=== PATIENT | female | born 1925 | race Caucasian/White ===

== ENCOUNTER 2016-11-03 04:24 | Inpatient (IN) | payer OTHER ==
[~2016-11-03] VITALS: Ht 165.1 cm; Wt 62.0 kg
[2016-11-03] VITALS (8 sets, daily range): BP systolic 117–137; BP diastolic 48–80
--- NOTE | ~2016-11-03 | 2DMMODE ---
[facility] [employer] [place] [place] [address] 2 D/M-MODE ECHOCARDIOGRAM Name: DAMARIS CARDENAS Room #: 311-P [facility] IN M.R.#: [id number] Admission: 11/03/16 Attend Phys: Eamon Bullard, Discharge: Date of : [birth year] Date of Service: 11/03/16 1723 Report #: [id number] THIS REPORT FOR: //name// APPROVED REPORT Study performed: 11/03/2016 13:39:01 EXAM: Comprehensive 2D, Doppler, and color-flow Echocardiogram Patient Location: Bedside Room 311 Blood Pressure: 131/66 mmHg HR: 60 bpm Other Information Study Quality: Adequate/low parasternal window, patient sitting up in bed. Indications Fall, CHF exacerbation.Hx: Afib, pacemaker, HTN 2D Dimensions RVDd: 34.59 mm LVEF(%): 59.69 (>50%) IVSd: 14.09 (7-11mm) LVOT Diam: 18.34 (18-24mm) LVDd: 46.56 mm PWd: 13.36 (7-11mm) LVDs: 31.81 (25-40mm) Aortic Root: 26.17 mm Baez's LVEF: 59.69 % Volumes Left Atrial Volume (Systole) Single Plane 4CH: 72.46 mL Single Plane 2CH: 53.74 mL LA ESV Index: 42.00 mL/m2 Aortic Valve AoV Peak Ze.: 4.31 m/s AO Peak Gr.: 74.36 mmHg AO Mean Gr.: 50.98 mmHg LV Max P.00 mmHg AO V2 VTI: 1286.20 mm LV Max: 0.87 m/s Mitral Valve MV PHT: 56.24 ms MV A Ze.: 1.44 m/s MV Decel. Time: 193.94 ms [facility] [employer] [place] [place] [address] 2 D/M-MODE ECHOCARDIOGRAM Name: CARDENASDAMARIS [facility] Room #: 311-P [facility].#: [id number] Admission: 11/03/16 Attend Phys: Eamon Bullard, Discharge: Date of : [birth year] Date of Service: 11/03/16 1723 Report #: [id number] Pulmonary Valve PV Peak Ze.: 0.90 m/s PV Peak Gr.: 3.21 mmHg Tricuspid Valve TR Peak Ze.: 3.64 m/s RAP Estimate: 10.00 mmHg TR Peak Gr.: 52.92 mmHg RVSP: 63.00 mmHg Left Ventricle The left ventricle is normal size. There is normal LV segmental wall motion. Moderate concentric left ventricular hypertrophy. Left ventricular systolic function is normal. LVEF is 65%. Grade II - pseudonormal filling dynamics. Right Ventricle The right ventricle is normal size. The right ventricular systolic function is normal. Pacemaker lead is present in the right ventricle. Atria Left atrium is moderately dilated. The right atrium size is normal. Aortic Valve Aortic valve is severely calcified. No aortic regurgitation is present. There is severe valvular aortic stenosis. Calculated aortic valve area is 0.5 cm2 with maximum pressure gradient of 74 mmHg and mean pressure gradient of 51 mmHg. Mitral Valve Mitral valve leaflets are moderately thickened and calcified. Moderate mitral annular calcification. Moderate mitral regurgitation. There is no mitral valve stenosis. Tricuspid Valve The tricuspid valve is normal in structure. There is mild tricuspid regurgitation. The right atrial pressure is estimated at 10 mmHg. There is moderate pulmonary hypertension with an estimated PAP of 63mmHg. Pulmonic Valve The pulmonary valve is normal in structure. Trace pulmonic regurgitation. Great Vessels The aortic root is normal in size. Ascending aorta is not well visualized. IVC is dilated and collapses <50% with inspiration. [address] [address] 2 D/M-MODE ECHOCARDIOGRAM Name: DAMARIS [facility]S [facility] Room #: [facility]-P [facility] IN ..#: [id number] Admission: 11/03/16 Attend Phys: Eamon Bullard, Discharge: Date of : [birth year] Date of Service: 11/03/16 1723 Report #: [id number] Pericardium There is no pericardial effusion. Large left and right pleural effusions noted. <Conclusion> The left ventricle is normal size. LVEF is 65%. Left atrium is moderately dilated. Aortic valve is severely calcified. There is severe valvular aortic stenosis. Calculated aortic valve area is 0.5 cm2 with maximum pressure gradient of 74 mmHg and mean pressure gradient of 51 mmHg. Mitral valve leaflets are moderately thickened and calcified. Moderate mitral annular calcification. Moderate mitral regurgitation. Trace pulmonic regurgitation. <ELECTRONICALLY SIGNED> By: Juan Soto MD 11/03/16 172 22 22 Juan Soto MD /INF
--- NOTE | ~2016-11-03 | EKG ---
[place] [address] [facility] [place] [address] ELECTROCARDIOGRAM REPORT Name: DAMARIS CARDENAS Room #: 311-P ADM IN M.R.#: [id number] Admission: 11/03/16 Attend Phys: Eamon Bullard MD Discharge: Date of : [birth year] Report #: [id number] THIS REPORT FOR: //name// [facility] ED Test Date: 2016-11-03 Test Time: 04:37:55 Pat Name: DAMARIS CARDENAS Department: Room: [facility] Gender: F Contractor [employer]hing: [id number] : 1925 Requested By: Fortunato Arnold Order Number: [id number] MD: Anthony Zheng Measurements Intervals [place] Rate: 93 P: NC: QRS: 10 QRSD: 95 T: QT: 379 QTc: 472 Interpretive Statements Atrial fibrillation Ventricular premature complex LVH with secondary repolarization abnormality Compared to ECG 10/01/2016 00:13:16 Ventricular premature complex(es) now present Sinus rhythm no longer present Electronically Signed On 11-03-2016 8:54:35 CDT by Anthony Zheng [email or web address] <ELECTRONICALLY SIGNED> By: Anthony Zheng MD, [facility] 11/03/16 0854 0437 0437 Anthony Zheng MD, [facility] /EPI
[~2016-11-03 04:24] MED LIST: ALPRAZOLAM 0.50.5 MG PO; AMBIEN 5 MG TABL5 M1; AMBIEN 5 MG TABL5 M1 PO; APAP500 PO; AVAPRO 150 MG150 M1 PO; AZO BLADDER CO300 MG PO; BENADRYL25 MG PO; CARDIZEM CD240 MG PO; COLACE100 MG PO; COUMADIN 3 MG TA3 M1 PO; COZAAR 25 MG TA25 M1 PO; FLONASE 0.05%50 MCG NASAL; GLUCOTROL5 MG PO; LASIX 40 MG TAB40 M2 PO; LIDODERM 5%1 PATC1 TRANSDERM; LINZESS290 MCG PO; LOPRESSOR50 PO; MIRALAX17 GM PO; NORVASC5 MG; OMEPRAZOLE20 M2 PO; PAXIL10 MG; POTASSIUM20; PRILOSEC 20 MG20 MG PO; PRILOSEC20 MG PO; SORINE 80 MG TA80 M1 PO; SORINE 80 MG TA80 MG; SURFAK240 MG; TOPROL XL50 MG PO; TRAMADOL 50 MG50 MG PO; TYLENOL EXTRA500 MG; TYLENOL325 MG PO; ULTRAM50 MG PO; VESICARE 5 MG TA5 MG PO; XANAX 0.5 MG0.5 MG; XANAX 0.5 MG0.5 MG PO
[2016-11-03] MEDS ORDERED: AMBIEN 5 MG TABL5 M1 PO (04:37)
[2016-11-03 05:02] LABS: RDW 18.9 % (10.5-14.5); WBC 11.6 thou/uL (4.0-11.0)
[2016-11-03 05:04] LABS: ABSOLUTE NEUTROPHILS 9.3 thou/uL (1.4-8.2); EOSINOPHILS 0.7 % (0.0-3.0); HEMATOCRIT 20.9 % (37.0-47.0); LYMPHOCYTES 11.4 % (24.0-44.0); MCH 23.1 pg (26.0-34.0); MCHC 30.8 g/dL (28.0-37.0); MONOCYTES 7.3 % (1.0-8.0); PLATELET COUNT 274 thou/uL (150-400); POLYS 79.6 % (36.0-66.0); RBC 2.79 mil/uL (4.20-5.00)
[2016-11-03 05:05] LABS: MANUAL DIFF NO
[2016-11-03 05:06] LABS: HEMOGLOBIN 6.5 gm/dL (12.0-15.0)
[2016-11-03 05:11] LABS: ANION GAP 8 mmol/L (7-16); BUN 39 mg/dL (7-18); CALCIUM 8.5 mg/dL (8.5-10.1); CHLORIDE 99 mmol/L (98-107); CO2 25 mmol/L (21-32); CREATININE 1.8 mg/dL (0.6-1.0); GLUCOSE 154 mg/dL (74-106); POTASSIUM 4.8 mmol/L (3.5-5.1); SODIUM 132 mmol/L (136-145)
[2016-11-03 05:15] LABS: APTT 30.1 Seconds (24.5-32.8); INR 1.2; PROTIME 12.5 Seconds (9.3-11.4)
[2016-11-03 05:31] LABS: ALBUMIN 2.4 g/dL (3.4-5.0); ALKALINE PHOSPHATASE 69 U/L (46-116); CK-MB MASS 0.8 ng/mL (<0.5-3.6); MAGNESIUM 2.2 mg/dL (1.8-2.4); NT-PRO BRAIN NAT PEPTIDE > 70000 pg/mL (<300); SGOT 17 U/L (15-37); SGPT 10 U/L (30-65); TOTAL BILIRUBIN 0.4 mg/dL (<0.1-1.0); TOTAL PROTEIN 6.2 g/dL (6.4-8.2); TROPONIN-I 0.07 ng/mL (<0.04-0.07)
[2016-11-03 06:18] LABS: URINE BLOOD NEGATIVE (Negative); URINE COLOR YELLOW; URINE GLUCOSE-RANDOM* NEGATIVE (Negative); URINE KETONES NEGATIVE (Negative); URINE LEUKOCYTES-REFLEX NEGATIVE (Negative); URINE PROTEIN (DIPSTICK) TRACE (Negative); URINE SPECIFIC GRAVITY >= 1.030 (1.003-1.035); URINE UROBILINOGEN 0.2 E.U./dl (0.2-1.0)
[2016-11-03 06:21] LABS: ICTOTEST (BILI CONFIRMATORY) Negative (Negative); URINE BILIRUBIN NEGATIVE (Negative)
[2016-11-03 17:41] LABS: INR 1.5; PROTIME 15.2 Seconds (9.3-11.4)
[2016-11-03 17:46] LABS: HEMATOCRIT 34.1 % (37.0-47.0); HEMOGLOBIN 10.8 gm/dL (12.0-15.0)
[2016-11-04 04:01] VITALS: BP 139/61
[2016-11-04 07:08] LABS: HEMATOCRIT 33.4 % (37.0-47.0); MCH 26.2 pg (26.0-34.0); MCV 79.3 fL (80.0-100.0); RBC 4.21 mil/uL (4.20-5.00); RDW 19.5 % (10.5-14.5); WBC 8.9 thou/uL (4.0-11.0)
[2016-11-04 07:25] VITALS: BP 125/76
[2016-11-04 07:32] LABS: CALCIUM 8.3 mg/dL (8.5-10.1); CREATININE 1.3 mg/dL (0.6-1.0); MAGNESIUM 1.9 mg/dL (1.8-2.4); POTASSIUM 3.7 mmol/L (3.5-5.1)
[2016-11-04 11:23] VITALS: BP 137/75
[2016-11-04 16:02] VITALS: BP 135/78
[2016-11-04 20:15] VITALS: BP 135/70
[2016-11-05 04:00] VITALS: BP 135/68
[2016-11-05 07:52] VITALS: BP 123/73
[2016-11-05 11:38] VITALS: BP 108/58
[2016-11-05 15:47] VITALS: BP 110/64
[2016-11-05 16:00] LABS: HEMATOCRIT 32.4 % (37.0-47.0); HEMOGLOBIN 10.7 gm/dL (12.0-15.0); MCH 26.3 pg (26.0-34.0); MCHC 33.1 g/dL (28.0-37.0); MCV 79.5 fL (80.0-100.0); RBC 4.08 mil/uL (4.20-5.00); RDW 19.8 % (10.5-14.5); WBC 7.7 thou/uL (4.0-11.0)
[2016-11-05 16:22] LABS: CALCIUM 8.2 mg/dL (8.5-10.1); CREATININE 1.1 mg/dL (0.6-1.0); POTASSIUM 3.8 mmol/L (3.5-5.1)
[2016-11-05 20:00] VITALS: BP 139/79
[2016-11-06 08:20] VITALS: BP 141/66
[2016-11-06 08:47] VITALS: BP 138/94
[2016-11-06] MEDS ORDERED: FLAGYL500 MG PO (14:23)
[2016-11-06] MEDS ORDERED: PROTONIX40 M1 PO (14:26)
[2016-11-06 14:34] VITALS: BP 138/94
== END 2016-11-06 16:59 | disposition home health service (06) | DRG 377 ==
LOC: ER 04:24 → EROBS 05:27 → 3N 05:27
PROVIDERS: Emergency Medicine; Internal Medicine; Nurse Practitioner
PROC: 30233N1 Transfusion of Nonautologous Red Blood Cells into Peripheral Vein, Percutaneous Approach (ICD-10-PCS; principal; 2016-11-03)
DX: K92.2 Gastrointestinal hemorrhage, unspecified (principal); I50.33 Acute on chronic diastolic (congestive) heart failure; D62 Acute posthemorrhagic anemia; N17.9 Acute kidney failure, unspecified; E44.0 Moderate protein-calorie malnutrition; J90 Pleural effusion, not elsewhere classified; S05.41XA Penetrating wound of orbit with or without foreign body, right eye, initial encounter; A04.7 Enterocolitis due to Clostridium difficile; I13.0 Hypertensive heart and chronic kidney disease with heart failure and stage 1 through stage 4 chronic kidney disease, or unspecified chronic kidney disease; I35.0 Nonrheumatic aortic (valve) stenosis; S01.81XA Laceration without foreign body of other part of head, initial encounter; Z96.89 Presence of other specified functional implants; F41.9 Anxiety disorder, unspecified; X58.XXXA Exposure to other specified factors, initial encounter; D72.829 Elevated white blood cell count, unspecified; G47.00 Insomnia, unspecified; K59.00 Constipation, unspecified; E78.5 Hyperlipidemia, unspecified; I48.2 Chronic atrial fibrillation; G47.33 Obstructive sleep apnea (adult) (pediatric); S09.90XA Unspecified injury of head, initial encounter; N18.9 Chronic kidney disease, unspecified; Z88.1 Allergy status to other antibiotic agents; Z88.6 Allergy status to analgesic agent; Z88.0 Allergy status to penicillin; Z88.2 Allergy status to sulfonamides; Y93.89 Activity, other specified; Y92.89 Other specified places as the place of occurrence of the external cause; Y99.8 Other external cause status; Z98.49 Cataract extraction status, unspecified eye; Z79.01 Long term (current) use of anticoagulants; Z79.899 Other long term (current) drug therapy; Z86.12 Personal history of poliomyelitis; Z90.49 Acquired absence of other specified parts of digestive tract; Z23 Encounter for immunization
CPT/HCPCS: 10096; 23012

== ENCOUNTER 2016-11-24 16:26 | Inpatient (IN) | payer OTHER ==
[~2016-11-24] VITALS: Ht 162.6 cm; Wt 66.3 kg
--- NOTE | ~2016-11-24 | EKG ---
[place] [address] [facility] [place] [address] ELECTROCARDIOGRAM REPORT Name: ROBERT CARDENASNORAH STAHL Room #: 438-P ADM IN M.R.#: [id number] Admission: 11/24/16 Attend Phys: Colt Nation MD Discharge: Date of : [birth year] Report #: [id number] THIS REPORT FOR: //name// [facility] ED Test Date: 2016-11-24 Test Time: 16:39:59 Pat Name: DAMARIS CARDENAS Department: Room: 438 Gender: F Radiation Therapy Technician: [id number] : 1925 Requested By: Eliceo Merritt Order Number: [id number] MD: Anthony Zheng Measurements Intervals [place] Rate: 73 P: 57 SC: 147 QRS: -5 QRSD: 95 T: 232 QT: 464 QTc: 512 Interpretive Statements Sinus rhythm Atrial premature complexes Probable LVH with secondary repol abnrm Anterior ST elevation, probably due to LVH Prolonged QT interval Compared to ECG 11/03/2016 04:37:55 Atrial premature complex(es) now present ST and T wave abnormality less prominent Ventricular premature complex(es) no longer present Electronically Signed On 11-26-2016 8:09:07 CDT by Anthony Zheng [email or web address] <ELECTRONICALLY SIGNED> By: Anthony Zheng MD, [facility] 11/26/16 0809 1639 1639 Anthony Zheng MD, [facility] /EPI
[~2016-11-24 16:26] MED LIST changes: +FLAGYL500 MG PO; +PROTONIX40 M1 PO
[2016-11-24 16:35] VITALS: BP 140/75
[2016-11-24 17:01] LABS: ABSOLUTE NEUTROPHILS 7.6 thou/uL (1.4-8.2); EOSINOPHILS 0.8 % (0.0-3.0); HEMATOCRIT 36.7 % (37.0-47.0); HEMOGLOBIN 11.9 gm/dL (12.0-15.0); LYMPHOCYTES 11.3 % (24.0-44.0); MCH 25.6 pg (26.0-34.0); MCHC 32.4 g/dL (28.0-37.0); PLATELET COUNT 222 thou/uL (150-400); POLYS 79.9 % (36.0-66.0); RBC 4.65 mil/uL (4.20-5.00); RDW 20.7 % (10.5-14.5); WBC 9.5 thou/uL (4.0-11.0)
[2016-11-24 17:03] LABS: MANUAL DIFF NO
[2016-11-24 17:09] LABS: CALCIUM 8.5 mg/dL (8.5-10.1); CREATININE 1.1 mg/dL (0.6-1.0)
[2016-11-24 17:21] LABS: ALBUMIN 2.7 g/dL (3.4-5.0); TOTAL BILIRUBIN 0.6 mg/dL (<0.1-1.0); TOTAL PROTEIN 6.6 g/dL (6.4-8.2); TROPONIN-I 0.15 ng/mL (<0.04-0.07)
[2016-11-24 17:53] VITALS: BP 137/71
[2016-11-24 18:36] VITALS: BP 147/55
[2016-11-24 19:44] VITALS: BP 127/52
[2016-11-24] MEDS ORDERED: MELATONIN3 MG PO (19:53)
[2016-11-24 23:17] VITALS: BP 137/51
[2016-11-25 03:33] VITALS: BP 149/67
[2016-11-25 05:43] LABS: HEMATOCRIT 33.4 % (37.0-47.0); HEMOGLOBIN 10.7 gm/dL (12.0-15.0); MCH 25.4 pg (26.0-34.0); MCV 79.4 fL (80.0-100.0); RBC 4.2 mil/uL (4.20-5.00); RDW 20.6 % (10.5-14.5); WBC 7.6 thou/uL (4.0-11.0)
[2016-11-25 06:01] LABS: ALBUMIN 2.3 g/dL (3.4-5.0); CALCIUM 8.2 mg/dL (8.5-10.1); CREATININE 1.1 mg/dL (0.6-1.0); POTASSIUM 3.6 mmol/L (3.5-5.1); TOTAL BILIRUBIN 0.5 mg/dL (<0.1-1.0); TOTAL PROTEIN 5.7 g/dL (6.4-8.2)
[2016-11-25 07:48] VITALS: BP 137/83
[2016-11-25 11:23] LABS: URINE BILIRUBIN NEGATIVE (Negative); URINE BLOOD NEGATIVE (Negative); URINE COLOR YELLOW; URINE GLUCOSE-RANDOM* NEGATIVE (Negative); URINE KETONES NEGATIVE (Negative); URINE LEUKOCYTES-REFLEX NEGATIVE (Negative); URINE PROTEIN (DIPSTICK) NEGATIVE (Negative); URINE UROBILINOGEN 0.2 E.U./dl (0.2-1.0)
[2016-11-25 13:00] VITALS: BP 133/66
[2016-11-25 15:08] VITALS: BP 121/68
[2016-11-25 19:06] VITALS: BP 108/69
[2016-11-26 00:04] VITALS: BP 128/67
[2016-11-26 03:56] VITALS: BP 132/68
[2016-11-26 06:00] LABS: HEMATOCRIT 36.1 % (37.0-47.0); HEMOGLOBIN 11.5 gm/dL (12.0-15.0); MCH 25.6 pg (26.0-34.0); MCHC 31.8 g/dL (28.0-37.0); MCV 80.3 fL (80.0-100.0); RBC 4.5 mil/uL (4.20-5.00); RDW 20.5 % (10.5-14.5); WBC 8.4 thou/uL (4.0-11.0)
[2016-11-26 06:14] LABS: CALCIUM 8.3 mg/dL (8.5-10.1)
[2016-11-26 07:47] VITALS: BP 129/95
[2016-11-26 11:21] VITALS: BP 107/71
[2016-11-26 16:40] VITALS: BP 126/92
[2016-11-26 20:10] VITALS: BP 125/85
[2016-11-27 03:43] VITALS: BP 114/82
[2016-11-27 08:00] VITALS: BP 136/80
[2016-11-27 12:46] VITALS: BP 115/79
[2016-11-27] MEDS ORDERED: LASIX 20 MG TAB20 MG PO (13:53)
[2016-11-27] MEDS ORDERED: HYDROCODON-ACE1 EAC7 PO (13:53)
[2016-11-27] MEDS ORDERED: DIGOXIN125 MCG PO (13:53)
[2016-11-27 15:03] VITALS: BP 115/79
[2016-11-27 15:06] VITALS: BP 115/79
== END 2016-11-27 17:17 | disposition home health service (06) | DRG 291 ==
LOC: ER 16:26 → 4S 17:30 → EROBS 17:30 → 4S 18:03
PROVIDERS: Family Medicine; Physician Assistant
DX: I13.0 Hypertensive heart and chronic kidney disease with heart failure and stage 1 through stage 4 chronic kidney disease, or unspecified chronic kidney disease (principal); I50.33 Acute on chronic diastolic (congestive) heart failure; J96.11 Chronic respiratory failure with hypoxia; N17.9 Acute kidney failure, unspecified; F41.9 Anxiety disorder, unspecified; N18.9 Chronic kidney disease, unspecified; G89.29 Other chronic pain; M54.9 Dorsalgia, unspecified; D64.9 Anemia, unspecified; I35.0 Nonrheumatic aortic (valve) stenosis; R53.81 Other malaise; H91.90 Unspecified hearing loss, unspecified ear; Z51.5 Encounter for palliative care; G47.33 Obstructive sleep apnea (adult) (pediatric); I48.2 Chronic atrial fibrillation; Z98.42 Cataract extraction status, left eye; Z98.41 Cataract extraction status, right eye; Z88.1 Allergy status to other antibiotic agents; Z90.49 Acquired absence of other specified parts of digestive tract; Z88.2 Allergy status to sulfonamides; Z88.8 Allergy status to other drugs, medicaments and biological substances; Z95.0 Presence of cardiac pacemaker; Z88.6 Allergy status to analgesic agent; Z88.0 Allergy status to penicillin
CPT/HCPCS: 10100

== ENCOUNTER 2016-12-01 17:34 | Inpatient (IN) | payer OTHER ==
[~2016-12-01] VITALS: Ht 165.1 cm; Wt 60.6 kg
--- NOTE | ~2016-12-01 | HC ---
[facility] [place] [address] CONSULTATION Name: DAMARIS CARDENAS ALNEMESIO Room #: 447-P ADM IN M.R.#: [id number] Admission: 12/01/16 Attend Phys: Javi Ortiz DO Discharge: Date of : [birth year] Report #: [id number] THIS REPORT FOR: //name// CC: Suzette Ortiz PRIMARY CARE PHYSICIAN: Suzette Gonzalez MD REFERRAL PHYSICIAN: . REASON FOR REFERRAL: Acute respiratory failure. HISTORY OF PRESENT ILLNESS: The patient is an 89-year-old white female who was brought to the emergency room with dyspnea along with altered mental status. A pulmonary consultation was requested. The patient has been sedentary for the last several years. She has a long history of polio. According to the son, she gets by moving to the commode, but has not ambulated for some time. She also is seen by Dr. Da rCook for atrial fibrillation. [facility]. Normally, the patient is alert and coherent Yesterday evening, the patient was found by her son somewhat unconscious, not responding. 911 was called. When she was seen in the ER, the patient appears to be quite somnolent, but opens eyes. She was hypoxic. BiPAP was placed. Preliminary study includes chest x-ray showing cardiomegaly, possible left lower lobe atelectasis, and no infiltrates. No obvious interstitial edema is noted. CT head performed showed probable evolving CVA. Currently, she is on BiPAP. She had been given benzodiazepine and narcotics due to restlessness and inability to tolerate to noninvasive positive-pressure ventilation. The son is present. He confirmed the patient is a DNR. He is also open to discussion regarding possible hospice care. PAST MEDICAL HISTORY: As mentioned above, she has a history of atrial fibrillation, apparent history of sleep apnea, hypertension, and hyperlipidemia. PAST SURGICAL HISTORY: Unknown. ALLERGIES: To CIPROFLOXACIN, PENICILLIN, WARFARIN, reactions are diarrhea to the antibiotics. [facility] [address] [place] [address] CONSULTATION Name: CARDENASDAMARIS [facility] Room #: 447-P [facility] IN M.R.#: [id number] Admission: 12/01/16 Attend Phys: Javi Ortiz DO Discharge: Date of : [birth year] Report #: [id number] HOME MEDICATIONS: Pending. FAMILY HISTORY: Noncontributory. SOCIAL HISTORY: She lives with her son. She is sedentary, but is able to transfer herself to the commode. She has not walked for a number of years. Otherwise, no history of tobacco or alcohol use. REVIEW OF SYSTEMS: Deferred as the patient is not able to provided answers at this time. She was given narcotics and sedatives. PHYSICAL EXAMINATION: GENERAL: She is somnolent. VITAL SIGNS: Temperature is 97.1 degrees Fahrenheit, pulse is 78, respiratory rate is 28, blood pressure is 157/95 mmHg, and saturation 99%. HEENT: Normocephalic and atraumatic. NECK: Supple without any lymphadenopathy or thyromegaly. CHEST: Breath sounds are decreased bilaterally due to poor effort. No obvious wheezes or rales. CARDIOVASCULAR: Irregularly irregular. No obvious murmurs or gallop. Pulses are 2+/4+ bilaterally. BREASTS: Deferred. ABDOMEN: Soft, nontender, no organomegaly or masses felt. GENITOURINARY: Deferred. RECTAL: Deferred. EXTREMITIES: No cyanosis, clubbing, or edema. LABORATORY DATA: Chest x-ray as mentioned above. CT chest performed earlier this morning revealed a large area of edema, loss of harmon matter involving the left frontoparietal lobe consistent with evolving infarct. No hemorrhage is noted. Chronic atrophy and microvascular disease is noted throughout the brain. Electrolytes: Sodium 138, potassium 4.0, chloride 96, CO2 is 30, BUN is 25, and creatinine is 2.1. Liver function profile is grossly unremarkable. WBC 16,500, hemoglobin is 11.8. Troponin is 3.6. Arterial blood gas yesterday revealed pH 7.44, pCO2 of 45, and pO2 of 94 on FiO2 of 100%. IMPRESSION: 1. Acute hypoxic respiratory failure in this 89-year-old white female due to cerebrovascular accident. 2. Left frontoparietal cerebrovascular accident. 3. Encephalopathy due to above. 4. History of atrial fibrillation. 5. Hypertension. 6. Elevated troponin. EKG shows nonspecific ST and T-wave abnormalities. No acute ischemic changes are noted. [facility] [address] [place] [address] CONSULTATION Name: CARDENASDAMARISNORAH JEAN-BAPTISTEBHARTITemi Room #: 447-P [facility] IN ..#: [id number] Admission: 12/01/16 Attend Phys: Javi Ortiz, Discharge: Date of : [birth year] Report #: [id number] Questionable left lower lobe infiltrates. It is possible that she may have pneumonia, but more than likely her respiratory failure is related to encephalopathy related to her cerebrovascular accident. We will monitor closely. Medical directive according to the son, she is a DNR. RECOMMENDATION: We will continue noninvasive positive-pressure ventilation. Wean O2 for saturation 90%. Broad spectrum antibiotics for possible pneumonia. We will consult neurology. We will defer anticoagulation to neurology. Agree with son's decision regarding DNR status. We also discussed that if the condition does not improve over the next 24 hours, he will consider hospice care. I concur. Thank you for the consultation. By: [id number] Rahul Zaidi MD /mart
--- NOTE | ~2016-12-01 | EKG ---
[place] [address] [facility] [place] [address] ELECTROCARDIOGRAM REPORT Name: ROBERT CARDENASNORAH STAHL Room #: 447-P ADM IN M.R.#: [id number] Admission: 12/01/16 Attend Phys: Javi Ortiz DO Discharge: Date of : [birth year] Report #: [id number] THIS REPORT FOR: //name// [facility] ED Test Date: 2016-12-01 Test Time: 17:46:11 Pat Name: DAMARIS CARDENAS Department: Room: 245 Gender: F Cnc Milling Machinist: ZORAN : 1925 Requested By: Latesha Bell Order Number: [id number] MD: Anthony Zheng Measurements Intervals [place] Rate: 79 P: 69 UT: 163 QRS: 12 QRSD: 94 T: 224 QT: 484 QTc: 556 Interpretive Statements Sinus rhythm Premature atrial complexes Nonspecific ST and T-wave abnormality. No previous ECG available for comparison Electronically Signed On 12-02-2016 7:57:18 CDT by Anthony Zheng [email or web address] <ELECTRONICALLY SIGNED> By: Anthony Zheng MD, [facility] 12/02/16 0757 D: [id number] 45 Anthony Zheng MD, FAC /EPI
--- NOTE | ~2016-12-01 | HC ---
[facility] [place] [address] CONSULTATION Name: DAMARIS CARDENAS Room #: 447-P [facility] IN M.R.#: [id number] Admission: 12/01/16 Attend Phys: Javi Ortiz, Discharge: 12/07/16 Date of : [birth year] Report #: [id number] THIS REPORT FOR: //name// CC: Suzette Ortiz DATE OF SERVICE: 12/07/2016 HISTORY OF PRESENT ILLNESS: The patient is an 89-year-old white female admitted with respiratory failure, O2 saturation in the 50s. She was placed on 15 liters nonrebreather. She was noted to have acute on chronic respiratory failure, healthcare-associated pneumonia. She was placed on BiPAP, although she has not tolerated it very well. She was diagnosed with a non-ST elevation HI. She has acute on chronic diastolic heart failure. She also was noted to have the onset of significant weakness of her right upper extremity. She was seen by neurology and CT scan showed a left frontoparietal infarct. This was noted on 12/02/2016 per neurology consultation. She was unable to undergo an MRI scan secondary to her pacemaker. She is also being monitored regarding bilateral pleural effusions. She has permanent atrial fibrillation and severe aortic stenosis. Speech therapy has seen her with her CVA and they recommended pureed diet with honey thickened liquids. We are seeing her in rehabilitation medicine consultation. PAST MEDICAL HISTORY: As noted above. She does have the history of obstructive sleep apnea, CHF, hypertension, chronic kidney disease stage 3, chronic atrial fibrillation, GI bleed. She had polio with some generalized weakness of both lower extremities, hyperlipidemia, diabetes, anxiety, diastolic heart failure. PAST SURGICAL HISTORY: Pacemaker placement, cholecystectomy, cataract repair, right total hip repair, hemorrhoidectomy. ALLERGIES: CIPROFLOXACIN, PENICILLIN, COUMADIN, PROVENTIL, MULTIPLE ANTIBIOTICS causing severe diarrhea. MEDICATIONS: Please see the full medication listing. SOCIAL HISTORY: She lives at home with her son. She has needed significant care, has been essentially bedbound/wheelchair bound with her son helping with transfers. He noted that she was able to do most of the dressing by herself but he needed to assist with her dressing activities as well. He basically provides 24-hour care for her at home. REVIEW OF SYSTEMS: Unobtainable. PHYSICAL EXAMINATION: GENERAL: The patient is a lethargic 89-year-old white female. She is currently [address] [address] CONSULTATION Name: DAMARIS CARDENAS Room #: 447-P [facility] IN [facility].#: [id number] Admission: 12/01/16 Attend Phys: Javi Ortiz, Discharge: 12/07/16 Date of : [birth year] Report #: [id number] on BiPAP, does not like it, keep trying to pull off the BiPAP with her left arm. Her son is at her side and is holding the left arm, so she cannot pull off the BiPAP. VITAL SIGNS: Her temperature is 97.4, pulse 80, respirations 20, blood pressure 148/66. NEUROLOGIC: She keeps her eyes closed. I had her tried to grasp my fingers with her left hand, but she did not follow commands in this regard. I could not get her to move both lower extremities to command. Facies appeared symmetric. She appeared to have good strength of that left upper extremity. Her right upper extremity is flaccid with no volitional movement. Decreased tone was noted. Bilateral lower extremity appeared to have more normal tone. She was able to move them at least antigravity, but again I could not actually test volitional testing. I was not able to test sensation. ASSESSMENT: An 89-year-old white female with the following problem list: 1. 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 2. Acute on chronic respiratory failure with hypoxia. 3. Atrial fibrillation. 4. Non-ST elevation myocardial infarction. 5. Acute on chronic diastolic heart failure. 6. Healthcare-associated pneumonia. 7. Bilateral pleural effusions. 8. Severe aortic stenosis. 9. Status post pacemaker placement. PLAN: At this point, the patient does not have the tolerance for an acute in-hospital inpatient rehabilitation stay. She has not been able to participate or cooperate with the therapist. Note that there is consideration for going home with hospice. At this point, we will follow along with you regarding her rehab therapy needs during her [facility] stay. Note that case management is involved and has been counseling the son regarding hospice issues. Thank you for asking us to assist in this patient's care. <ELECTRONICALLY SIGNED> By: Jaison Montgomery MD 12/09/16 1528 1130 [id number] Jaison Montgomery MD /nt
--- NOTE | ~2016-12-01 | H ---
[facility] [place] [address] HISTORY AND PHYSICAL Name: DAMARIS CARDENAS Room #: 447-P ADM IN M.R.#: [id number] Admission: 12/01/16 Attend Phys: Javi Ortiz DO Discharge: Date of : [birth year] Report #: [id number] THIS REPORT FOR: //name// CC: Suzette Ortiz DATE OF SERVICE: 12/01/2016 ATTENDING PHYSICIAN: Dr. Bullard. PRIMARY CARE PHYSICIAN: Dr. Suzette Gonzalez. CHIEF COMPLAINT: Respiratory failure. HISTORY OF PRESENT ILLNESS: The patient is an 89-year-old female who was brought into the ER by her son. Apparently, she has been very sleepy and difficult to arouse, so he called EMS. When they arrived, her oxygen saturation was in the 50s and she was minimally responsive. She was placed on 15 liters nonrebreather mask and was brought into the ER. He says she has been coughing up some phlegm lately, which has been clear. She was recently in the hospital for similar episodes and within the last few months, she has actually had 6 hospitalizations. Since August of this year, she has been treated for syncope, C. diff and GI bleed. She has been advised to go to rehab, but her son has been taking her home instead and taking care of her 24 x 7. She normally does not have to wear oxygen at home, but a few nights ago, she did have to start wearing it because of increasing shortness of breath. She does continue to have some loose stools but only 1-2 per day. She is still on treatment for her C. diff. She did not have any prior history of coronary artery disease. She does have known severe aortic stenosis and has been told she is not a surgical candidate and her son is quite unreasonable at times. He is very preoccupied with the fact that she is not getting her oral heart medications despite the fact that she is minimally responsive and she will likely aspirate if we were to give her any food or pills. He said at this time, he is ready to let her go and does not want her intubated, but he is now willing to discuss hospice as his goal was taking her home, so she can pass away at home. PAST MEDICAL HISTORY: Obstructive sleep apnea, CHF, hypertension, chronic kidney disease stage 3, chronic atrial fibrillation, GI bleed, polio, hyperlipidemia, diabetes, anxiety, diastolic heart failure. PAST SURGICAL HISTORY: Pacemaker placement, cholecystectomy, cataract repair, tonsillectomy, right total hip repair, hemorrhoidectomy. ALLERGIES: CIPROFLOXACIN, PENICILLIN, and COUMADIN and PROVENTIL and multiple ANTIBIOTICS caused severe diarrhea. [address] [address] HISTORY AND PHYSICAL Name: DAMARIS CARDENAS Room #: 447-P [facility] IN M.R.#: [id number] Admission: 12/01/16 Attend Phys: Javi Ortiz DO Discharge: Date of : [birth year] Report #: [id number] HOME MEDICATIONS: Not yet in the computer to be reviewed. SOCIAL HISTORY: The patient lives at home with her son. There are no reports of any tobacco, alcohol or drug use. Her son is her DPOA and provides 24-hour care for her. She is basically bedridden. Prior to the last few days, she was able to stand and pivot with his assistance to get into a wheelchair but she nonambulatory. REVIEW OF SYSTEMS: Twelve point review of systems was reviewed with the patient, otherwise negative unless stated in the HPI. PHYSICAL EXAMINATION: GENERAL: The patient is a lethargic female in no acute distress. VITAL SIGNS: Temperature is 98.5, heart rate 85, respirations 36, blood pressure is 129/78, oxygen was 80% on facemask on arrival. It is currently 92% on a BiPAP. HEENT: PERRLA. Sclerae are nonicteric. She will not track with her eyes. Oral mucosa is pink and moist. NECK: Supple, no JVD noted. CARDIAC: Heart rate is irregular with a loud 4/6 systolic ejection murmur. RESPIRATORY: Breath sounds are coarse bilaterally, diminished in both bases. Breathing is nonlabored. ABDOMEN: Round, soft. She does not grimace to palpation. Bowel sounds are positive. VASCULAR: 1+ bilateral lower extremity edema. Feet are cool. Pedal pulses are 1+ bilaterally. NEUROLOGIC: The patient is lethargic. She will not open her eyes to sound or follow any commands. Her right arm is completely flaccid. The left arm she is moving spontaneously and will provide a handgrip there. She is able to move both lower extremities equally. LABORATORY DATA AND DIAGNOSTICS: WBC is 17.1, hemoglobin 12.3, platelets 192. Sodium 134, potassium 4.3, BUN 22, creatinine 2.2, glucose 189. AST is 42. CK is 79. Troponin is 2.43. Lactate is 2.2. BNP greater than 70,000. EKG showing sinus rhythm with bigeminy. ABG showed a pH of 7.45, pCO2 45, pO2 of 94.5 and bicarbonate of 30.6. Chest x-ray showed basilar infiltrate and similar effusion. ASSESSMENT AND PLAN: 1. Acute on chronic respiratory failure. Healthcare aquired pneumonia. She does have associated leukocytosis. We will continue with vancomycin and aztreonam and we will give a onetime dose of Solu-Medrol. Pulmonary is consulted for further recommendations. She is now a do not resuscitate, but her son is okay with continuing BiPAP for now as well as antibiotics for pneumonia, but he would like to have a hospice evaluate tomorrow if possible. [facility] [address] [place] [address] HISTORY AND PHYSICAL Name: CARDENASDAMARISNORAH STAHL Room #: 447-P [facility] IN [facility].#: [id number] Admission: 12/01/16 Attend Phys: Javi Ortiz, Discharge: Date of : [birth year] Report #: [id number] 2. Non-ST elevation myocardial infarction. This may be due to underlying congestive heart failure versus her downtime when her oxygen saturation was in the 50s. We will check serial enzymes and Cardiology is notified. 3. Altered mental status. She does have some associated right arm weakness. We will go ahead and check a stat head CT, which again although could very well be metabolic, but we do need to rule out cerebrovascular accident. 4. Chronic kidney disease stage 3. Creatinine has been stable. 5. Acute on chronic diastolic heart failure. She also has associated severe aortic stenosis and has not been a surgical candidate in the past. Her BNP is greater than 70,000. There is some basilar infiltrate, which may be pneumonia, but because she does appear fluid overloaded, we will go ahead and give a dose of Lasix x 1. 6. Diabetes, add sliding scale insulin, check blood sugars q. 6 hours. 7. Chronic atrial fibrillation. She is currently rate controlled. We will not be able to give her regular heart medications as well. She is on BiPAP and the son was made aware of that. Her Coumadin for atrial fibrillation was recently stopped due to gastrointestinal bleed. 8. We will continue to follow the patient closely throughout the hospitalization and make changes based on clinical status. <ELECTRONICALLY SIGNED> By: MANAN Velasco 12/07/16 [id number] MANAN Velasco /mart
[~2016-12-01 17:34] MED LIST changes: +DIGOXIN125 MCG PO; +HYDROCODON-ACE1 EAC7 PO; +LASIX 20 MG TAB20 MG PO; +MELATONIN3 MG PO
[2016-12-01 18:56] LABS: ABG SAMPLE TYPE ARTERIAL; BE(vivo) 5.9 mmol/L (-2 to +3); HCO3 30.6 mmol/L (22.0-26.0); O2(CT) 16.9 mL/dL (15.0-23.0); O2Hb 96.4 % (92.0-98.0); PCO2 45.2 mmHg (35.0-45.0); PO2 94.5 mmHg (80.0-100.0); STICK SITE R.BRACHIAL; pH 7.449 (7.360-7.450); sO2 97.4 % (92.0-98.0)
[2016-12-01 18:57] LABS: ABG COMMENT BIPAP 12/ 6; Pressure Support 6 cm H20
[2016-12-01 19:23] LABS: HEMATOCRIT 39.4 % (37.0-47.0); HEMOGLOBIN 12.3 gm/dL (12.0-15.0); MCH 25.3 pg (26.0-34.0); MCHC 31.3 g/dL (28.0-37.0); PLATELET COUNT 192 thou/uL (150-400); RBC 4.86 mil/uL (4.20-5.00); RDW 20.1 % (10.5-14.5); WBC 17.1 thou/uL (4.0-11.0)
[2016-12-01 19:24] LABS: MANUAL DIFF YES
[2016-12-01 19:30] LABS: ANION GAP 8 mmol/L (7-16); BUN 22 mg/dL (7-18); CALCIUM 8.4 mg/dL (8.5-10.1); CHLORIDE 97 mmol/L (98-107); CO2 29 mmol/L (21-32); CREATININE 2.2 mg/dL (0.6-1.0); GLUCOSE 189 mg/dL (74-106); POTASSIUM 4.3 mmol/L (3.5-5.1); SODIUM 134 mmol/L (136-145)
[2016-12-01 19:41] LABS: ALBUMIN 2.6 g/dL (3.4-5.0); ALKALINE PHOSPHATASE 65 U/L (46-116); SGOT 42 U/L (15-37); SGPT 9 U/L (30-65); TOTAL BILIRUBIN 0.5 mg/dL (<0.1-1.0)
[2016-12-01 19:45] LABS: TROPONIN-I 2.43 ng/mL (<0.04-0.07)
[2016-12-01 19:52] LABS: ABSOLUTE NEUTROPHILS 15.2 thou/uL (1.4-8.2); ANISOCYTOSIS 1+; TOTAL CELL COUNT 100
[2016-12-01 20:10] LABS: NT-PRO BRAIN NAT PEPTIDE > 70000 pg/mL (<300)
[2016-12-02] VITALS (40 sets, daily range): BP systolic 95–192; BP diastolic 53–180
[2016-12-02 01:22] LABS: APTT 22.4 Seconds (24.5-32.8); INR 1.1; PROTIME 11.7 Seconds (9.3-11.4)
[2016-12-02 01:28] LABS: ALBUMIN 2.6 g/dL (3.4-5.0); CALCIUM 8.3 mg/dL (8.5-10.1); CREATININE 2.1 mg/dL (0.6-1.0); TOTAL BILIRUBIN 0.5 mg/dL (<0.1-1.0); TOTAL PROTEIN 6.5 g/dL (6.4-8.2)
[2016-12-02 01:31] LABS: TROPONIN-I 3.6 ng/mL (<0.04-0.07)
[2016-12-02 04:44] LABS: HEMATOCRIT 36.9 % (37.0-47.0); HEMOGLOBIN 11.8 gm/dL (12.0-15.0); MCH 25.5 pg (26.0-34.0); MCHC 31.9 g/dL (28.0-37.0); MCV 80.1 fL (80.0-100.0); RBC 4.61 mil/uL (4.20-5.00); RDW 19.9 % (10.5-14.5); WBC 16.5 thou/uL (4.0-11.0)
[2016-12-02 10:00] LABS: CHOLESTEROL 122 mg/dL (<200); HDL CHOLESTEROL 54 mg/dL (>40); LDL CHOLESTEROL 45 mg/dL (<100); TC:HDL 2.3 Ratio (Not establshd); TRIGLYCERIDE 117 mg/dL (<150); VLDL 23 mg/dL (<40)
[2016-12-03] VITALS (19 sets, daily range): BP systolic 84–151; BP diastolic 43–106
[2016-12-03 05:38] LABS: HEMATOCRIT 36.2 % (37.0-47.0); HEMOGLOBIN 11.5 gm/dL (12.0-15.0); MCH 25.5 pg (26.0-34.0); MCHC 31.8 g/dL (28.0-37.0); MCV 80.1 fL (80.0-100.0); RBC 4.51 mil/uL (4.20-5.00); WBC 19.8 thou/uL (4.0-11.0)
[2016-12-03 05:54] LABS: CALCIUM 8.4 mg/dL (8.5-10.1); CREATININE 1.9 mg/dL (0.6-1.0); POTASSIUM 4.2 mmol/L (3.5-5.1)
[2016-12-03 16:13] LABS: ABG SAMPLE TYPE ARTERIAL; BE(vivo) 4.3 mmol/L (-2 to +3); HCO3 29.2 mmol/L (22.0-26.0); LACTATE 2.17 mmol/L (0.5-2.0); O2(CT) 17.6 mL/dL (15.0-23.0); O2Hb 98.4 % (92.0-98.0); PCO2 44.8 mmHg (35.0-45.0); PO2 189.6 mmHg (80.0-100.0); pH 7.432 (7.360-7.450); sO2 99.3 % (92.0-98.0); tCO2 30.6 mmol/L (24.0-30.0)
[2016-12-04 03:21] VITALS: BP 156/85
[2016-12-04 05:15] LABS: HEMATOCRIT 35.4 % (37.0-47.0); MCH 25.3 pg (26.0-34.0); MCV 81.8 fL (80.0-100.0); RBC 4.33 mil/uL (4.20-5.00); RDW 21.1 % (10.5-14.5); WBC 18.6 thou/uL (4.0-11.0)
[2016-12-04 05:22] LABS: CREATININE 1.6 mg/dL (0.6-1.0); POTASSIUM 4.1 mmol/L (3.5-5.1)
[2016-12-04 07:17] VITALS: BP 139/84
[2016-12-04 11:46] VITALS: BP 150/71
[2016-12-04 15:20] VITALS: BP 152/89
[2016-12-04 19:49] VITALS: BP 179/91
[2016-12-05 05:22] VITALS: BP 125/58
[2016-12-05 06:49] LABS: CALCIUM 7.8 mg/dL (8.5-10.1); CREATININE 1.2 mg/dL (0.6-1.0); POTASSIUM 3.8 mmol/L (3.5-5.1)
[2016-12-05 08:54] VITALS: BP 123/72
[2016-12-05 11:45] VITALS: BP 127/74
[2016-12-05 16:14] VITALS: BP 150/75
[2016-12-05 20:32] VITALS: BP 137/66
[2016-12-06 06:15] VITALS: BP 149/03
[2016-12-06 08:48] VITALS: BP 153/91
[2016-12-06 12:36] VITALS: BP 128/107
[2016-12-06 16:32] VITALS: BP 148/86
[2016-12-06 19:15] VITALS: BP 146/96
[2016-12-07 08:00] VITALS: BP 148/66
[2016-12-07] MEDS ORDERED: MSL20MG/ML PO (11:20)
[2016-12-07 12:00] VITALS: BP 100/52
[2016-12-07 12:11] VITALS: BP 148/66
== END 2016-12-07 14:39 | disposition hospice, home (50) | DRG 871 ==
LOC: ER 17:34 → 4S 20:18 → EROBS 20:18 → 4S 20:18 → ICU 20:18 → 4S 12-03 07:34
PROVIDERS: Emergency Medicine; Internal Medicine; Internal Medicine Pulmonary Disease; Nurse Practitioner Acute Care; Psychiatry & Neurology Neurology
PROC: B548ZZA Ultrasonography of Superior Vena Cava, Guidance (ICD-10-PCS; principal; 2016-12-02)
PROC: 02HV33Z Insertion of Infusion Device into Superior Vena Cava, Percutaneous Approach (ICD-10-PCS; principal; 2016-12-02)
PROC: 5A09357 Assistance with Respiratory Ventilation, Less than 24 Consecutive Hours, Continuous Positive Airway Pressure (ICD-10-PCS; 2016-12-02)
DX: A41.9 Sepsis, unspecified organism (principal); I63.9 Cerebral infarction, unspecified; J18.9 Pneumonia, unspecified organism; I21.4 Non-ST elevation (NSTEMI) myocardial infarction; J96.21 Acute and chronic respiratory failure with hypoxia; I50.43 Acute on chronic combined systolic (congestive) and diastolic (congestive) heart failure; G93.40 Encephalopathy, unspecified; I13.0 Hypertensive heart and chronic kidney disease with heart failure and stage 1 through stage 4 chronic kidney disease, or unspecified chronic kidney disease; G81.94 Hemiplegia, unspecified affecting left nondominant side; N17.9 Acute kidney failure, unspecified; J98.11 Atelectasis; E78.5 Hyperlipidemia, unspecified; Z66 Do not resuscitate; Z51.5 Encounter for palliative care; G47.33 Obstructive sleep apnea (adult) (pediatric); I48.2 Chronic atrial fibrillation; I35.0 Nonrheumatic aortic (valve) stenosis; D72.829 Elevated white blood cell count, unspecified; Z96.641 Presence of right artificial hip joint; E11.22 Type 2 diabetes mellitus with diabetic chronic kidney disease; N18.3 Chronic kidney disease, stage 3 (moderate); F41.9 Anxiety disorder, unspecified; Z96.89 Presence of other specified functional implants; Z86.12 Personal history of poliomyelitis; Z79.01 Long term (current) use of anticoagulants; Z88.1 Allergy status to other antibiotic agents; Z88.0 Allergy status to penicillin; Z88.8 Allergy status to other drugs, medicaments and biological substances; Z98.49 Cataract extraction status, unspecified eye; Z88.2 Allergy status to sulfonamides; Z79.899 Other long term (current) drug therapy; Z90.49 Acquired absence of other specified parts of digestive tract
CPT/HCPCS: 10078; 10100; 27000